=== PATIENT | female | born 1980 | race Caucasian/White ===

== ENCOUNTER → 2016-10-27 | Outpatient (CLI) | payer OTHER ==
[~2016-10-27] MED LIST: PRENTAB36 PO
== END ==
LOC: EDUNIT# 08:15 → HPND 08:18
PROVIDERS: ATTEND Obstetrics & Gynecology
DX: O09.522 Supervision of elderly multigravida, second trimester (principal)
CPT/HCPCS: 59000; 76811; 76946

== ENCOUNTER → 2016-11-17 | Outpatient (CLI) | payer OTHER | LOC: HPND 08:17 | PROVIDERS: ATTEND Obstetrics & Gynecology | DX: O09.522 Supervision of elderly multigravida, second trimester (principal); Z3A.00 Weeks of gestation of pregnancy not specified | CPT/HCPCS: 76816 ==

== ENCOUNTER → 2016-12-30 | Outpatient (CLI) | payer OTHER | LOC: HPND 09:49 | PROVIDERS: ATTEND Obstetrics & Gynecology | DX: O09.523 Supervision of elderly multigravida, third trimester (principal); O44.23 Partial placenta previa NOS or without hemorrhage, third trimester; Z3A.28 28 weeks gestation of pregnancy | CPT/HCPCS: 76816; 76817 ==

== ENCOUNTER 2017-02-07 12:48 | Emergency (ER) | payer OTHER ==
[2017-02-07] VITALS (36 sets, daily range): BP systolic 119; BP diastolic 60; PULSE 66–91
[~2017-02-07 12:48] MED LIST changes: +MACR100C2 PO
--- NOTE | 2017-02-07 13:52 | PD ---
HPI Chief Complaint pelvic pressure Date Seen: Feb 07, 2017 Travel History International Travel<30 Days: No Contact w/Intl Traveler<30Days: Yes Name of Country Traveled to: [facility] Known Affected Area: No History of Present Illness HPI 36 yo @ 33w4d with revised LEATHA 03-24-2017. care with [facility]. AMA. Patient presents with c/o pelvic pressure, mostly when she walks and the baby is moving. She denies contractions, but notes [place] occasionally. She denies VB, LOF. She notes good FM. She c/o increase in the normal mucous. History Past Medical History Medical History: Denies Significant Hx Obstetric History Obstetric History x 1 Past Surgical History Narrative Surgical Breast Augmentation Nose Surgery Family History Family History: Negative Social History Alcohol Use: No Tobacco Use: No Substance Abuse: No Allergies-Medications (Allergen,Severity, Reaction): Coded Allergies: No Known Allergies (Unverified , 01/29/17) Home Meds Active Scripts Nitrofurantoin Monohydrate Macrocrystals (Macrobid)100 Mg [id number] Mg PO BID #10 CAP Ref 0 Prov:Katy Villatoro 01/29/17 Multivit-Min W/Fe-FA ( Forte)1 Tab Tab1 Tab PO DAILY #60 BOTTLE Ref 11 Prov:Katy Villatoro 11/23/16 Review of Systems General / Constitutional: No: Fever, Chills HENT: No: Headaches, Lightheadedness Cardiovascular: No: Chest Pain or Discomfort, Palpitations Respiratory: No: Cough, Short of Breath Gastrointestinal: No: Nausea, Vomiting, Diarrhea, Abdominal Pain, Constipation Genitourinary: No: Urgency, Frequency, Dysuria, Pelvic Pain, Discharge, Vaginal Bleeding Musculoskeletal: No: Limited ROM, Weakness Skin: No Rash, No Itching, No Lesions Neurologic: No: Dizziness, Syncope Physical Exam Vital Signs Date Time Temp Pulse Resp B/P Pulse Ox O2 Delivery O2 Flow Rate FiO2 02/07/17 16:10 73 02/07/17 15:58 119/60 Narrative GENERAL: Well-nourished, well-developed patient. NAD SKIN: Warm and dry. HEAD: Normocephalic and atraumatic. NECK: trachea midline. CARDIOVASCULAR: Regular rate RESPIRATORY: No accessory muscle use. ABDOMEN/GI: Abdomen soft, non-tender, no rebound, no guarding Gravid GENITOURINARY: External Genitalia: intact and normal in appearance BUS glands: [-] SSE: normal leukorrhea SVE: Closed/thick/high FHT's: Category: I Baseline: 130 Reactive: +accelerations Variability: mod Decels: [-] TOCO: Rare UCs, irritability EXTREMITIES: No cyanosis or edema. BACK: Nontender without obvious deformity. NEUROLOGICAL: Awake and alert. Motor and sensory grossly within normal limits. Normal speech. Data Data Vital Signs Reviewed: Yes Orders Vital Signs (Adult) .ON ADMISSION (02/07/17 13:17) ^ Labor Status (02/07/17 13:17) ^ Non Stress Test (02/07/17 13:17) Labs Urine Dip: clear, No nit, no blood, no prot, no glucose, sm LE only Laboratory Tests Test 02/07/17 13:58 Fibronectin NEGATIVE (NEGATIVE) MDM Medical Record Reviewed: Yes Narrative Course / MDM 33w4d Pelvic pressure Cervix closed, no labor ffn NEG Normal Leukorrhea UA negative CAT I FHT Plan D/c home Precautions reviewed ffn reviewed has TRISH next week All questions answered. Diagnosis Diagnosis: Primary Impression: Feeling pelvic pressure during in third trimester, antepartum Additional Impressions: [place] contractions 33 weeks gestation of Disposition: 01 DISCHARGE HOME Condition: Good Sarah Dee MD Feb 07, 2017 13:52
== END 2017-02-07 16:41 | disposition home or self-care (01) ==
LOC: HOBED 12:48
DX: O47.03 False labor before 37 completed weeks of gestation, third trimester (principal); R10.2 Pelvic and perineal pain; N89.8 Other specified noninflammatory disorders of vagina; Z79.899 Other long term (current) drug therapy; Z3A.33 33 weeks gestation of pregnancy
CPT/HCPCS: 82731; 99282

== ENCOUNTER 2017-03-20 01:43 | Emergency (ER) | payer OTHER ==
[~2017-03-20 01:43] MED LIST changes: -MACR100C2 PO
--- NOTE | 2017-03-20 02:34 | PD ---
HPI Chief Complaint Contractions Date Seen: Mar 20, 2017 Time Seen: 02:20 Travel History International Travel<30 Days: No Contact w/Intl Traveler<30Days: No Known Affected Area: No History of Present Illness HPI 36-year-old 2 para 1 who reports mild contractions. She denies any bleeding, leakage of fluid. She reports good movement. She states that her cervix was 2 cm dilated in the clinic recently. Weeks Gestation: 33 Para: 1 : 2 History Past Medical History Medical History: Denies Significant Hx Past Surgical History Surgical History: No Previous Surgery Family History Family History: Negative Social History Alcohol Use: No Tobacco Use: No Substance Abuse: No Allergies-Medications (Allergen,Severity, Reaction): Coded Allergies: No Known Allergies (Unverified , 03/16/17) Home Meds Active Scripts Multivit-Min W/Fe-FA ( Forte) 1 Tab Tab, 1 TAB PO DAILY, #60 BOTTLE 11 Refills Prov:Katy Villatoro 11/23/16 Review of Systems Except as stated in HPI: all other systems reviewed are Neg Gastrointestinal: Indigestion Physical Exam Narrative GENERAL: Well-nourished, well-developed patient. SKIN: Warm and dry. HEAD: Normocephalic and atraumatic. EYES: No scleral icterus. No injection or drainage. ENT: No nasal drainage noted. Mucous membranes pink. Airway patent. NECK: Supple, trachea midline. No JVD. CARDIOVASCULAR: Regular rate and rhythm without murmurs, gallops, or rubs. RESPIRATORY: Breath sounds equal bilaterally. No accessory muscle use. ABDOMEN/GI: Abdomen soft, non-tender, bowel sounds present, no rebound, no guarding Gravid to [-] weeks size Fundal Height: [-] GENITOURINARY: External Genitalia: intact and normal in appearance BUS glands: [-] Cervix: [-] Dilatation: [-2] Effacement: [-60] Station: [-3-] Presentation: [v-] Membranes: [intact ] Uterine Contractions: [-Mild] FHT's: Category: [-] Baseline: [-] Reactive: [-Yes] Variability: [-] Decels: [-] EXTREMITIES: No cyanosis or edema. BACK: Nontender without obvious deformity. No CVA tenderness. NEUROLOGICAL: Awake and alert. Motor and sensory grossly within normal limits. Five out of 5 muscle strength in all muscle groups. Normal speech. MDM Medical Record Reviewed: Yes Narrative Course / MDM Assessment: 38+ week intrauterine with mild irregular contractions without evidence of labor Plan: Labor precautions were reviewed. She'll follow up as needed. Diagnosis Diagnosis: Primary Impression: with 38 completed weeks gestation Disposition: 01 DISCHARGE HOME Condition: Good Rocael Perez MD Mar 20, 2017 02:34
[2017-03-20] MEDS ORDERED: ONDANSETRON ODT 4 MG TAB PO ONE (03:15)
== END 2017-03-20 03:40 | disposition home or self-care (01) ==
LOC: HOBED 01:43
DX: O62.9 Abnormality of forces of labor, unspecified (principal); Z3A.38 38 weeks gestation of pregnancy
CPT/HCPCS: 59025

== ENCOUNTER 2017-03-24 23:56 | Inpatient (IN) | payer OTHER ==
[~2017-03-24] VITALS: Ht 172.7 cm; Wt 86.0 kg
[2017-03-25] VITALS (68 sets, daily range): BP systolic 92–140; BP diastolic 48–114; PULSE 56–107; RESP 16–18; TEMP 98.1–98.5; O2SAT 98–100
[2017-03-25] MEDS ORDERED: LACTATED RINGER'S 1000 ML INJ 1,000 ML IV PRN (00:32)
--- NOTE | 2017-03-25 00:32 | HHI.HP ---
HPI Chief Complaint Contractions possibly leaking fluid Date Seen: Mar 25, 2017 Time Seen: 00:27 Travel History International Travel<30 Days: No Contact w/Intl Traveler<30Days: No Known Affected Area: No History of Present Illness HPI Patient is 36-year-old white female [place] at 40 weeks gestation [facility] presents with regular contractions and possibly leaking fluid however amnio sure was negative today. She denies bleeding, heart rate tracing is reactive and she is kaiser every 2 minutes. Weeks Gestation: 40 Para: 1 : 2 History Obstetric History Obstetric History One vaginal delivery Social History Alcohol Use: No Tobacco Use: No Substance Abuse: No Allergies-Medications (Allergen,Severity, Reaction): Coded Allergies: No Known Allergies (Unverified , 03/23/17) Home Meds Active Scripts Multivit-Min W/Fe-FA ( Forte) 1 Tab Tab, 1 TAB PO DAILY, #60 BOTTLE 11 Refills Prov:Katy Villatoro 11/23/16 Review of Systems General / Constitutional: No: Fever, Weight Gain, Chills, Other Eyes: No: Diploplia, Blurred Vision, Visual changes, Pain, Photophobia HENT: No: Headaches, Vertigo, Lightheadedness Cardiovascular: No: Irregular Rhythm, Chest Pain or Discomfort, Palpitations, Tachycardia, Syncope, Varicosities, Edema, Cyanosis Respiratory: No: Cough, Short of Breath, Other Gastrointestinal: Abdominal Pain, No: Nausea, Vomiting, Diarrhea Genitourinary: No: Decreased Urinary Output, Oliguria Musculoskeletal: No: Limited ROM, Weakness, Cramping, Edema, Pain Skin: No Rash, No Itching, No Dryness, No Lumps, No Change in Pigmentation, No Change in Nails, No Alopecia, No Lesions Neurologic: No: Weakness, Dizziness, Syncope, Focal Abnormalities, Coordination Problem, Headache, Slurred Speech, Seizures Psychiatric: No: Depression, Suicidal Ideations, Homicidal Ideation Endocrine: No: Heat Intolerance, Cold Intolerance, Polydipsia, Polyuria, Other Physical Exam Narrative GENERAL: Well-nourished, well-developed patient. SKIN: Warm and dry. HEAD: Normocephalic and atraumatic. EYES: No scleral icterus. No injection or drainage. ENT: No nasal drainage noted. Mucous membranes pink. Airway patent. NECK: Supple, trachea midline. No JVD. CARDIOVASCULAR: Regular rate and rhythm without murmurs, gallops, or rubs. RESPIRATORY: Breath sounds equal bilaterally. No accessory muscle use. BREASTS: Bilateral exam showed no masses , no retractions, no nipple discharge. ABDOMEN/GI: Abdomen soft, non-tender, bowel sounds present, no rebound, no guarding Gravid to [-40] weeks size Fundal Height: [-40] GENITOURINARY: External Genitalia: intact and normal in appearance BUS glands: [-] Cervix: [-] Dilatation: [4-5 -] Effacement: [-90] Station: [-1] Presentation: [-vtx] Membranes: [intact ] Uterine Contractions: [q 2 min-] FHT's: Category: [1-] Baseline: [-133] Reactive: [-yes] Variability: [mod-] Decels: [-none] EXTREMITIES: No cyanosis or edema. BACK: Nontender without obvious deformity. No CVA tenderness. NEUROLOGICAL: Awake and alert. Motor and sensory grossly within normal limits. Five out of 5 muscle strength in all muscle groups. Normal speech. Caprini VTE Risk Assessment Caprini VTE Risk Assessment: No/Low Risk (score <= 1) Caprini Risk Assessment Model Point Value = 1 Point Value = 2 Point Value = 3 Point Value = 5 Age 41-60 Minor surgery BMI > 25 kg/m2 Swollen legs Varicose veins or History of unexplained or recurrent spontaneous Oral contraceptives or hormone replacement Sepsis (< 1 month) Serious lung disease, including pneumonia (< 1 month) Abnormal pulmonary function Acute myocardial infarction Congestive heart failure (< 1 month) History of inflammatory bowel disease Medical patient at bed rest Age 61-74 Arthroscopic surgery Major open surgery (> 45 min) Laparoscopic surgery (> 45 min) Malignancy Confined to bed (> 72 hours) Immobilizing plaster cast Central venous access Age >= 75 History of VTE Family history of VTE Factor V Leiden Prothrombin [id number] Lupus anticoagulant Anticardiolipin antibodies Elevated serum homocysteine Heparin-induced thrombocytopenia Other congenital or acquired thrombophilia Stroke (< 1 month) Elective arthroplasty Hip, pelvis, or leg fracture Acute spinal cord injury (< 1 month) Prophylaxis Regimen Total Risk Factor Score Risk Level Prophylaxis Regimen 0-1 Low Early ambulation 2 Moderate Order ONE of the following: *Sequential Compression Device (SCD) *Heparin 5000 units SQ BID 3-4 Higher Order ONE of the following medications: *Heparin 5000 units SQ TID *Enoxaparin/Lovenox 40 mg SQ daily (WT < 150 kg, CrCl > 30 mL/min) *Enoxaparin/Lovenox 30 mg SQ daily (WT < 150 kg, CrCl > 10-29 mL/min) *Enoxaparin/Lovenox 30 mg SQ BID (WT < 150 kg, CrCl > 30 mL/min) AND/OR *Sequential Compression Device (SCD) 5 or more Highest Order ONE of the following medications: *Heparin 5000 units SQ TID (Preferred with Epidurals) *Enoxaparin/Lovenox 40 mg SQ daily (WT < 150 kg, CrCl > 30 mL/min) *Enoxaparin/Lovenox 30 mg SQ daily (WT < 150 kg, CrCl > 10-29 mL/min) *Enoxaparin/Lovenox 30 mg SQ BID (WT < 150 kg, CrCl > 30 mL/min) AND *Sequential Compression Device (SCD) Data Data Group B Strep: Negative Labs amnisure neg Assessment/Plan Assessment and Plan Patient is 36-year-old white female of [place] dissent is 40 weeks gestation who presents in labor. Patient cervix 4-5 cm /90%/ -1/vertex , amnio sure negative at this time, heart rate tracing is reactive contractions are every 2 minutes Impressions active labor at term Plans admission the hospital labor management, epidural anesthesia, anticipate vaginal delivery Eliu Sullivan II, MD Mar 25, 2017 00:32
[2017-03-25] MEDS ORDERED: LIDOCAINE HCL 1% 50 ML VIAL I-DERMAL PRN (00:45)
[2017-03-25] MEDS ORDERED: OXYTOCIN 30 UNITS-500ML PREMIX 500 ML IV ONE (00:45)
[2017-03-25] MEDS ORDERED: MINERAL OIL 10 ML VIAL TOPICAL PRN (00:45)
[2017-03-25] MEDS ORDERED: SODIUM CHLORID 0.9% 500 ML INJ 500 ML IV PRN (00:45)
[2017-03-25] MEDS ORDERED: ONDANSETRON HCL 4 MG/2 ML VIAL IV PRN (00:45)
[2017-03-25] MEDS ORDERED: LIDOCAINE HCL 1% 50 ML VIAL INFIL PRN (00:45)
[2017-03-25] MEDS ORDERED: CITRIC ACID-SODIUM CITRATE LIQ 30 ML UDC PO SCH (00:45)
[2017-03-25] MEDS ORDERED: fentaNYL 2MCG-BUPIV 0.125% INJ 100 ML ONE (00:51)
[2017-03-25] MEDS ORDERED: SODIUM CHLOR 0.9% 1000 ML INJ 1,000 ML IV PRN (00:52)
[2017-03-25 01:03] LABS: AUTOMATED NEUTROPHIL # 7.4 TH/MM3 (1.8-7.7); BASOPHIL # 0.1 TH/MM3 (0-0.2); BASOPHIL % 0.6 % (0.0-2.0); EOSINOPHIL # 0.2 TH/MM3 (0-0.4); EOSINOPHIL % 1.6 % (0.0-4.0); HEMATOCRIT 41.8 % (35.0-46.0); HEMO FLAGS DIFF FINAL; LYMPH % 18.5 % (9.0-44.0); MEAN CELL VOLUME 95.5 FL (80.0-100.0); MEAN CORPUSCULAR HEMOGLOBIN 32.3 PG (27.0-34.0); MEAN CORPUSCULAR HGB CONC 33.8 % (32.0-36.0); MONO % 9.5 % (0.0-8.0); NEUT % 69.8 % (16.0-70.0); PLATELET COUNT 244 TH/MM3 (150-450); RED BLOOD COUNT 4.38 MIL/MM3 (4.00-5.30); RED CELL DISTRIBUTION WIDTH 12.3 % (11.6-17.2); WHITE BLOOD COUNT 10.6 TH/MM3 (4.0-11.0)
[2017-03-25 01:04] LABS: BACTERIA, URINE RARE /hpf; BLOOD, URINE SMALL (NEG); COMMENT (UR) CULT NOT INDICATED; CULTURE IF INDICATED CULT NOT INDICATED; GLUCOSE,URINE NEG (NEG); KETONE, URINE NEG (NEG); MUCUS URINE FEW /lpf (OCC); NITRITE,URINE NEG (NEG); SQUAMOUS EPITHELIAL CELL URINE <1 /hpf (0-5); URINE COLOR LIGHT-YELLOW (YELLW/STRAW)
[2017-03-25] MEDS: LACTATED RINGER'S 1000 ML INJ 1,000 ML IV SCH ×3 (01:20→04:05)
[2017-03-25] MEDS ORDERED: ePHEDrine/NS 25 MG/5 ML SYR IV PRN (01:45)
[2017-03-25] MEDS ORDERED: NO SYSTEM NARCOTICS PRN (01:45)
[2017-03-25] MEDS ORDERED: DO NOT ADMINISTER ANTICOAGULANTS PRN (01:45)
[2017-03-25] MEDS ORDERED: fentaNYL 2MCG-BUPIV 0.125% 100 ML EPIDURAL SCH (01:45)
--- NOTE | 2017-03-25 05:43 | PD.OB.DELI ---
Weeks gestation: 40 Gest age assessed date: Mar 24, 2017 Gest age assessed time: 23:56 Pt started active labor?: Yes Medical induction of labor?: No Artificial rupture of membrane: No Anesthesia: Epidural Episiotomy: None Vaginal Delivery: Normal Presentation: Occiput anterior Nuchal Cord: x1 Delayed cord clamping (45 sec): No : Male Delivery date: Mar 25, 2017 Delivery time: 05:15 One Minute : 8 Five Minute : 9 Weight: 3856 gm Placenta: Spontaneous delivery, Intact Laceration: Vaginal laceration Repair: Vicryl running Additional Information large vaginal /periurethral laceration from clitoral martines to urethra repaired in running 3-0 vicryl Eliu Sullivan II, MD Mar 25, 2017 05:43
[2017-03-25] MEDS ORDERED: DOCUSATE SODIUM 50 MG/SENNA 8.6 MG TAB PO PRN (05:45)
[2017-03-25] MEDS ORDERED: ONDANSETRON ODT 4 MG TAB PO PRN (05:45)
[2017-03-25] MEDS ORDERED: ACETAMINOPHEN 325 MG TAB PO PRN (05:45)
[2017-03-25] MEDS ORDERED: oxyCODONE/ACETAMINOPHEN 5 MG/325 MG TAB PO PRN (05:45)
[2017-03-25] MEDS ORDERED: BENZOCAINE 20% TOPICAL SPRAY 60 ML CAN TOPICAL PRN (05:45)
[2017-03-25] MEDS ORDERED: ALUMINUM/MAGNESIUM/SIMETH 30 ML CUP PO PRN (05:45)
[2017-03-25] MEDS ORDERED: OXYTOCIN 30 UNITS-500ML PREMIX 500 ML IV SCH (05:45)
[2017-03-25] MEDS ORDERED: WITCH HAZEL 50%/GLYCERIN 12.5% 40 PAD JAR TOPICAL PRN (05:45)
[2017-03-25] MEDS ORDERED: SODIUM CHLORIDE 0.9% FLUSH 10 ML FLUSH IV FLUSH PRN (05:45)
[2017-03-25] MEDS ORDERED: ZOLPIDEM TARTRATE 5 MG TAB PO PRN (05:45)
[2017-03-25] MEDS: SODIUM CHLORIDE 0.9% FLUSH 10 ML FLUSH IV FLUSH SCH ×2 (07:07→21:00)
[2017-03-25] MEDS: IBUPROFEN 600 MG TAB PO PRN ×2 (10:04→17:36)
[2017-03-25] MEDS ORDERED: AMMONIA AROMATIC INHALANT 0.33 ML ONE (15:00)
[2017-03-25] MEDS ORDERED: MEASLES, MUMPS, RUBELLA VACCINE 0.5 ML VIAL SQ ONE (16:00)
[2017-03-25] MEDS ORDERED: DIPHTH/TETANUS/ACEL PERTUSSIS (BOOSTER) 0.5 ML VIAL/PFS IM ONE (16:00)
[2017-03-26] MEDS: IBUPROFEN 600 MG TAB PO PRN ×2 (04:12→12:48)
[2017-03-26 08:00] VITALS: BP 118/78; PULSE 77; RESP 16; TEMP 98.8
[2017-03-26] MEDS ORDERED: PERI8.6T PO (08:45)
[2017-03-26] MEDS ORDERED: IBUP-232 PO (08:45)
--- NOTE | 2017-03-26 08:46 | HHI.DCPOC ---
Discharge Care Plan Diagnosis: (1) (spontaneous vaginal delivery) Report Symptoms to Your Doctor -Temperature above 100.5 degrees -Redness, of incision or excessive or foul smelling drainage -Unusual pain or calf pain -Increased vaginal bleeding -Painful or difficulty urinating -Feelings of extreme sadness or anxiety after 2 weeks Goals to Promote Your Health * To prevent worsening of your condition and complications * To maintain your health at the optimal level Directions to Meet Your Goals Take your medications as prescribed Follow your dietary instruction Follow activity as directed Ensure plenty of rest for recovery Drink fluids for hydration Keep your appointments as scheduled Take your immunizations and boosters as scheduled If your symptoms worsen call your PCP, if no PCP go to Urgent Care Center or Emergency Room Smoking is Dangerous to Your Health. Avoid second hand smoke Call the 24-hour crisis hotline for domestic abuse at Bonny Spear MD, R3 Mar 26, 2017 08:46
--- NOTE | 2017-03-26 09:01 | HHI.OB ---
Subjective Post Day: 1 Remarks day # 1 AFVSS overnight. Decreased lochia. Denies dysuria. No breast tenderness. She is feeding the baby via breast. Appetite good. No nausea or vomiting. Ambulating well. Denies calf pain or shortness of breath. Otherwise, she is doing well this morning and has no other complaints. Objective Vitals/I&O Vital Signs Date Time Temp Pulse Resp B/P (MAP) Pulse Ox O2 Delivery O2 Flow Rate FiO2 03/26/17 08:00 98.8 77 16 118/78 (91) 03/25/17 20:30 91 120/61 (80) 03/25/17 20:30 98.3 18 03/25/17 10:10 98.1 78 16 115/64 (81) Objective Remarks GENERAL: Well-nourished, well-developed patient. CARDIOVASCULAR: Regular rate and rhythm without murmurs, gallops, or rubs. RESPIRATORY: Breath sounds equal bilaterally. No accessory muscle use. ABDOMEN/GI: Abdomen soft, non-tender. Fundus: Firm, non-tender at umbilicus. GENITOURINARY: Light to moderate bleeding. EXTREMITIES: No cyanosis or edema, non-tender, without signs of DVT. Medications and IVs Current Medications Medications (Trade) Dose Ordered Sig/Donaldo Route Start Time Stop Time Status Last Admin Lactated Ringer's 1,000 ml @ 125 mls/hr Q8H IV 03/25/17 00:32 03/25/17 04:05 Lactated Ringer's 1,000 ml @ 3,000 mls/hr Q20M PRN IV 03/25/17 00:32 Sodium Chloride 1,000 ml @ 100 mls/hr Q10H PRN IV 03/25/17 00:52 (Xylocaine 1% Inj (50 ml)) 0.1 ml UNSCH X1 PRN I-DERMAL 03/25/17 00:45 03/28/17 00:44 (Bicitra Liq) 30 ml DRAWING SUPERVISOR PO 03/25/17 00:45 03/29/17 00:44 (Zofran Inj) 4 mg Q6H PRN IV 03/25/17 00:45 (fentaNYL INJ) 50 mcg Q1H PRN IV PUSH 03/25/17 00:45 (fentaNYL INJ) 100 mcg Q1H PRN IV PUSH 03/25/17 00:45 (Xylocaine 1% Inj (50 ml)) 10 ml UNSCH X1 PRN INFIL 03/25/17 00:45 03/27/17 00:44 (Muri-Lube Oil) 10 ml UNSCH PRN TOPICAL 03/25/17 00:45 Fentanyl/ Bupivacaine HCl 100 ml @ 0 mls/hr TITRATE EPIDURAL 03/25/17 01:45 (NS Flush) 2 ml BID IV FLUSH 03/25/17 09:00 03/25/17 07:07 (NS Flush) 2 ml UNSCH PRN IV FLUSH 03/25/17 05:45 (Tylenol) 650 mg Q4H PRN PO 03/25/17 05:45 (Motrin) 600 mg Q6H PRN PO 03/25/17 05:45 03/26/17 04:12 (Percocet 5-325 Mg) 1 tab Q4H PRN PO 03/25/17 05:45 (Americaine 20% Top Spr) 1 spray Q4H PRN TOPICAL 03/25/17 05:45 03/25/17 10:43 (Tucks Pads) 1 applic QID PRN TOPICAL 03/25/17 05:45 03/25/17 10:43 (Marjan-Colace) 2 tab Q12H PRN PO 03/25/17 05:45 (Ambien) 5 mg HS PRN PO 03/25/17 05:45 (Mag-Al Plus Susp Liq) 15 ml Q8H PRN PO 03/25/17 05:45 (Zofran Odt) 4 mg Q6H PRN PO 03/25/17 05:45 Assessment/Plan Assessment and Plan 36 y/o female who is PPD# 1 s/p . -Continue routine care. - Motrin PRN pain. -Encouraged OOB. Advised pelvic rest for 6 wks. -Re: ctrl, she would like to discuss with outpatient OB. -D/c today. shante Esposito, Dr. Beatris Chandra,Fan Mohamud MD R1 Mar 26, 2017 09:01
== END 2017-03-26 13:35 | disposition home or self-care (01) | DRG 775 ==
LOC: HOBED 23:56 → H2EA 03-25 00:29 → H1EA 03-25 09:58
PROVIDERS: ADMIT Obstetrics & Gynecology Maternal & Fetal Medicine; ATTEND Obstetrics & Gynecology Maternal & Fetal Medicine
PROC: 10E0XZZ Delivery of Products of Conception, External Approach (ICD-10-PCS; principal; 2017-03-25)
PROC: 0UQMXZZ Repair Vulva, External Approach (ICD-10-PCS; 2017-03-25)
PROC: 0UQGXZZ Repair Vagina, External Approach (ICD-10-PCS; 2017-03-25)
DX: O69.81X0 Labor and delivery complicated by cord around neck, without compression, not applicable or unspecified (principal); O71.4 Obstetric high vaginal laceration alone; Z37.0 Single live birth; Z3A.40 40 weeks gestation of pregnancy; O71.82 Other specified trauma to perineum and vulva
CPT/HCPCS: 59025; 81001; 84112; 85025; 86900; 86901; 90715; J2590; J7120